=== PATIENT | female | born 1940 | race Caucasian/White ===

== ENCOUNTER 2019-05-20 09:47 | Inpatient (IN) | payer MEDICARE ==
[~2019-05-20] VITALS: Ht 154.9 cm; Wt 75.8 kg
[2019-05-20] VITALS (11 sets, daily range): BP systolic 106–141; BP diastolic 56–96
[2019-05-20 10:54] LABS: BASOPHILS % (AUTO) 0.5 % (0-1); EOSINOPHILS # (AUTO) 0.1 X10'3 (0-0.9); EOSINOPHILS % (AUTO) 0.9 % (0-6); HEMATOCRIT 41.8 % (35.0-45.0); HEMOGLOBIN 14.1 g/dl (12.0-16.0); LYMPHOCYTES # (AUTO) 1.8 X10'3 (1.1-4.8); LYMPHOCYTES % (AUTO) 24.5 % (21-51); MEAN CORPUSCULAR HEMOGLOBIN 30.1 PG (27.0-31.0); MEAN CORPUSCULAR HGB CONC 33.8 g/dL (33.0-36.5); MEAN CORPUSCULAR VOLUME 89.1 FL (78-98); MEAN PLATELET VOLUME 7.6 FL (7.4-10.4); MONOCYTES # (AUTO) 0.6 X10'3 (0-0.9); MONOCYTES % (AUTO) 7.8 % (2-12); NEUTROPHILS % (AUTO) 66.3 % (42-75); PLATELET COUNT 170 X10'3 (140-440); RED BLOOD COUNT 4.68 X10'6 (4.20-5.60); RED CELL DISTRIBUTION WIDTH 14.1 % (11.5-14.5); WHITE BLOOD COUNT 7.5 X10'3 (4.5-11.0)
[2019-05-20 11:01] LABS: PARTIAL THROMBOPLASTIN TIME 29 SECONDS (22-32)
[2019-05-20 11:02] LABS: ALANINE AMINOTRANSFERASE 50 U/L (12-78); ALBUMIN 3.5 G/DL (3.4-5.0); ALKALINE PHOSPHATASE 101 IU/L (46-116); ANION GAP 10 (8-16); ASPARTATE AMINO TRANSFERASE 36 U/L (10-37); BILIRUBIN,TOTAL 1.3 MG/DL (0.1-1.0); BLOOD UREA NITROGEN 13 MG/DL (7-18); BUN/CREATININE RATIO 13.7 (6.6-38.0); CALCIUM 9.2 MG/DL (8.5-10.1); CHLORIDE 105 MMOL/L (99-107); CREATININE 0.95 MG/DL (0.40-0.90); GLUCOSE 116 MG/DL (70-104); POTASSIUM 3.4 MMOL/L (3.5-5.1); SODIUM 143 MMOL/L (135-145); TOTAL CARBON DIOXIDE 28.5 MMOL/L (24-32); TOTAL PROTEIN 7.1 G/DL (6.4-8.2); eGFR 57 ML/MIN
[2019-05-20] MEDS ORDERED: diltiazem 5mg/ml 5ml inj. IV ONE ×3 (12:20→12:45)
[2019-05-20] MEDS ORDERED: aspirin 81mg tab.chew PO ONE (12:20)
[2019-05-20] MEDS ORDERED: diltiazem-D5W 125mg/125ml 125 ML IV PRN (12:42)
[2019-05-20] MEDS ORDERED: normal saline 1000ML IV soln IVB ONE (12:45)
[2019-05-20] MEDS ORDERED: diltiazem-NS 100mg/100ml 100 ML IV PRN (13:00)
[2019-05-20] MEDS ORDERED: normal saline 1000ml 1,000 ML IV SCH (13:17)
[2019-05-20] MEDS ORDERED: ondansetron/PF 4mg/2ml inj IV PRN (13:20)
[2019-05-20] MEDS ORDERED: magnesium hydroxide 30ml (MOM) UD suspension PO PRN (13:20)
[2019-05-20] MEDS ORDERED: acetaminophen 325mg tablet PO PRN ×2 (13:20)
[2019-05-20] MEDS ORDERED: magnesium 2GM in 50ml NS 50 ML IV PRN (13:20)
[2019-05-20] MEDS ORDERED: potassium CL 10mEq/100ml bag 100 ML IV PRN ×2 (13:20)
[2019-05-20] MEDS ORDERED: magnesium Cl slow-release 64mg tablet PO PRN (13:20)
[2019-05-20] MEDS ORDERED: potassium Cl 20 mEq SR tablet PO PRN (13:20)
[2019-05-20] MEDS ORDERED: bisacodyl 10mg suppository rectal RC PRN (13:20)
[2019-05-20] MEDS ORDERED: mag hydrox/Alum hydrox/simeth 30ml oral suspension PO PRN (13:20)
[2019-05-20] MEDS ORDERED: magnesium 4gm in 100ml NS 100 ML IV PRN (13:20)
[2019-05-20] MEDS ORDERED: HYDROcodone/acetaminophen 5mg/325mg tablet PO PRN (13:20)
[2019-05-20] MEDS ORDERED: diltiazem-NS 100mg/100ml 100 ML IV SCH (13:45)
--- NOTE | 2019-05-20 14:00 | NUR ---
Patient in room PCU 3025. I have received report from Kat HELM, ED, and had the opportunity to ask questions and assume patient care.
[2019-05-20 14:41] LABS: PHOSPHORUS 2.4 MG/DL (2.3-4.5)
--- NOTE | 2019-05-20 15:26 | NUR ---
ATTEMPTED TO CALL REPORT TO JOSE HELM: HE WILL CALL ME BACK AFTER HE IS OUT OF A [facility] ROOM PER POKER ROOM MANAGER
--- NOTE | 2019-05-20 15:46 | NUR ---
PHONE REPORT TO JOSE HELM
--- NOTE | 2019-05-20 16:00 | NUR ---
dr long provided medication and history list
--- NOTE | 2019-05-20 16:00 | NUR ---
Patient in room PCU 3025. I have received report from Kat HELM, ED, and had the opportunity to ask questions and assume patient care.
--- NOTE | 2019-05-20 16:07 | NUR ---
per dr jaime leave cardizem gtt at 10mg/hr iv patient to be transferred to PCU on [facility] monitored with rn Eliel JASSO PIV WITH NS @ 20 ML/HR AND CARDIZEM GTT AT 10 MG/HR
--- NOTE | 2019-05-20 16:23 | NUR ---
called [facility] and left message for epifanio alfonso that dr valero wants the cardizem at 10 mg/hr
--- NOTE | 2019-05-20 16:30 | NUR ---
Pt arrived to unit. Oriented Pt to room, call light. Pt hooked up to mobile #[id number]. Pt alert and oriented and vital, except heart rate, WNL
[2019-05-20] MEDS ORDERED: OXYB5TAB16 PO (16:53)
[2019-05-20] MEDS ORDERED: CITA20TA26 PO (16:53)
[2019-05-20] MEDS ORDERED: METO-395 PO (16:53)
[2019-05-20] MEDS ORDERED: RALO60TA13 PO (16:53)
[2019-05-20] MEDS ORDERED: OMEP20TA23 PO (16:57)
[2019-05-20] MEDS ORDERED: OCUVITE PO (17:00)
[2019-05-20] MEDS: potassium Cl 20 mEq SR tablet PO PRN ×2 (17:02→21:11)
[2019-05-20] MEDS ORDERED: NAPR220T67 PO (17:06)
[2019-05-20] MEDS ORDERED: CALCIUM PO (17:08)
[2019-05-20] MEDS ORDERED: [UNRECOGNIZED DRUG - OTHER] PO (17:08)
[2019-05-20] MEDS ORDERED: MV-M1TAB19 PO (17:10)
[2019-05-20] MEDS: diltiazem-NS 100mg/100ml 100 ML IV SCH (17:37)
[2019-05-20] MEDS ORDERED: temazepam 15mg capsule PO PRN (21:00)
[2019-05-21] VITALS (23 sets, daily range): BP systolic 91–143; BP diastolic 52–107
[2019-05-21] MEDS: diltiazem-NS 100mg/100ml 100 ML IV SCH ×3 (01:33→23:10)
[2019-05-21] MEDS: potassium Cl 20 mEq SR tablet PO PRN (01:34)
[2019-05-21] MEDS ORDERED: diltiazem 30mg tablet PO SCH (02:00)
--- NOTE | 2019-05-21 06:16 | NUR ---
Problems reprioritized. Patient report given to Nini HELM., endoresed care, questions answered & plan of care reviewed with . pt resting quietly in bed.
--- NOTE | 2019-05-21 06:30 | NUR ---
Patient in room PCU 3025. I have received report from ALICJA Alcocer and had the opportunity to ask questions and assume patient care.
[2019-05-21] MEDS: K and/or MAG REPLACEMENT MC SCH (08:00)
[2019-05-21] MEDS: raloxifene 60mg tablet PO SCH (08:07)
[2019-05-21] MEDS: citalopram 20mg tablet PO SCH (08:07)
[2019-05-21] MEDS: oxybutynin 5mg tablet PO SCH ×2 (08:07→19:07)
[2019-05-21 08:19] LABS: ANION GAP 10 (8-16); BLOOD UREA NITROGEN 11 MG/DL (7-18); BUN/CREATININE RATIO 11.8 (6.6-38.0); CALCIUM 9.6 MG/DL (8.5-10.1); CHLORIDE 110 MMOL/L (99-107); CHOL/HDL RATIO 2.9 (0.00-4.99); CHOLESTEROL 157 MG/DL (0-200); CREATININE 0.93 MG/DL (0.40-0.90); GLUCOSE 98 MG/DL (70-104); HDL CHOLESTEROL 55 MG/DL (35-60); HEMATOCRIT 41.6 % (35.0-45.0); LDL CHOLESTEROL 101 MG/DL (50-100); MAGNESIUM 1.9 MG/DL (1.5-2.4); MEAN CORPUSCULAR HEMOGLOBIN 30.3 PG (27.0-31.0); MEAN CORPUSCULAR HGB CONC 33.7 g/dL (33.0-36.5); MEAN PLATELET VOLUME 7.8 FL (7.4-10.4); PHOSPHORUS 2.8 MG/DL (2.3-4.5); PLATELET COUNT 169 X10'3 (140-440); POTASSIUM 4.2 MMOL/L (3.5-5.1); RED BLOOD COUNT 4.62 X10'6 (4.20-5.60); RED CELL DISTRIBUTION WIDTH 14.3 % (11.5-14.5); SODIUM 144 MMOL/L (135-145); TOTAL CARBON DIOXIDE 24.5 MMOL/L (24-32); TRIGLYCERIDES 55 MG/DL (20-135); WHITE BLOOD COUNT 9.7 X10'3 (4.5-11.0); eGFR 58 ML/MIN
[2019-05-21] MEDS ORDERED: diltiazem-NS 100mg/100ml 100 ML IV SCH (11:25)
[2019-05-21] MEDS: diltiazem 30mg tablet PO SCH ×4 (12:16→20:00)
--- NOTE | 2019-05-21 14:00 | NUR ---
PER PHARMACY NON ADMIN 1400 PO CARDIZEM TOO EARLY. SUPPOSE TO BE Q6HRS
[2019-05-21] MEDS ORDERED: diltiazem-D5W 125mg/125ml 125 ML IV SCH (15:25)
--- NOTE | 2019-05-21 15:29 | NUR ---
SPOKE TO PHARMACIST ASKED HIM TO ADJUST CARDIZEM PO TO Q6HRS FROM 1ST PO DOSE AT 1200. PER PHARMACIST GIVE NOC DOSE 1HR EARLY THIS DARYL. THEN IT WILL BE ON APPROPRIATE SCHEDULE
--- NOTE | 2019-05-21 15:30 | NUR ---
PT BACK IN AFIB WITH RVR DR. KENDRICK NOTIFIED ORDER FOR CARDIZEM GTT OBTAINED. WILL CONTINUE TO MONITOR PT
--- NOTE | 2019-05-21 18:01 | NUR ---
DR. REGAN AWARE FO FLUCTUATING HEART RATE 110'S-140'S 150'S, PER MD CONTINUE TO MONITOR
--- NOTE | 2019-05-21 18:37 | NUR ---
Problems reprioritized. Patient report given, questions answered & plan of care reviewed with ALICJA SMYTH AND ALICJA LOVELACE.
--- NOTE | 2019-05-21 18:44 | NUR ---
Student documentation: I have reviewed and agree with all interventions, assessments performed and documented by ALICJA MARES. Addendum: 05/21/19 at 1847 by Chary Causey RN SUZAN HUNT RN
--- NOTE | 2019-05-21 18:47 | NUR ---
Student Medication Administration: For this medication-pass time frame, all medication were reviewed, dispensed, administered and documented per hospital policy by SUZAN.
[2019-05-22] VITALS (12 sets, daily range): BP systolic 106–138; BP diastolic 47–89
[2019-05-22] MEDS: diltiazem 30mg tablet PO SCH ×3 (02:12→14:00)
[2019-05-22] MEDS: diltiazem-NS 100mg/100ml 100 ML IV SCH (05:13)
--- NOTE | 2019-05-22 05:30 | NUR ---
ORIENTATIOM documentation: I have reviewed and agree with all interventions, assessments and med passes performed and documented by Ana
[2019-05-22 06:12] LABS: HEMATOCRIT 42.9 % (35.0-45.0); HEMOGLOBIN 14.5 g/dl (12.0-16.0); MEAN CORPUSCULAR HEMOGLOBIN 30.5 PG (27.0-31.0); MEAN CORPUSCULAR HGB CONC 33.8 g/dL (33.0-36.5); MEAN CORPUSCULAR VOLUME 90.2 FL (78-98); PLATELET COUNT 193 X10'3 (140-440); RED BLOOD COUNT 4.75 X10'6 (4.20-5.60); RED CELL DISTRIBUTION WIDTH 14.1 % (11.5-14.5); WHITE BLOOD COUNT 9.3 X10'3 (4.5-11.0)
--- NOTE | 2019-05-22 06:24 | NUR ---
Patient in room PCU 3015. I have received report from Adrian HEML and had the opportunity to ask questions and assume patient care.
[2019-05-22 06:37] LABS: ALBUMIN 3.1 G/DL (3.4-5.0); ANION GAP 12 (8-16); BLOOD UREA NITROGEN 13 MG/DL (7-18); BUN/CREATININE RATIO 15.5 (6.6-38.0); CALCIUM 9.4 MG/DL (8.5-10.1); CHLORIDE 107 MMOL/L (99-107); CREATININE 0.84 MG/DL (0.40-0.90); GLUCOSE 118 MG/DL (70-104); MAGNESIUM 1.8 MG/DL (1.5-2.4); PHOSPHORUS 2.4 MG/DL (2.3-4.5); POTASSIUM 3.6 MMOL/L (3.5-5.1); SODIUM 142 MMOL/L (135-145); TOTAL CARBON DIOXIDE 23.4 MMOL/L (24-32); eGFR 66 ML/MIN
[2019-05-22] MEDS: oxybutynin 5mg tablet PO SCH (07:16)
[2019-05-22] MEDS: citalopram 20mg tablet PO SCH (07:16)
[2019-05-22] MEDS: raloxifene 60mg tablet PO SCH (07:17)
[2019-05-22] MEDS: K and/or MAG REPLACEMENT MC SCH (07:19)
--- NOTE | 2019-05-22 10:05 | NUR ---
Page Dr. Spivey PAGER ID: [phone] MESSAGE: Room 3015B: Caitlyn Hines: Patient is currently on 10mg Cardizem drip & 90 mg Cardizem PO. Her heart rate is high 60's low 70's. Could we drop her drip rate down to 5mg? Thank you, Elinor ext [phone].
[2019-05-22] MEDS ORDERED: diltiazem-NS 100mg/100ml 100 ML IV SCH ×2 (10:55→12:30)
--- NOTE | 2019-05-22 14:46 | NUR ---
Page Dr. Spivey PAGER ID: [phone] MESSAGE: Room 3015B Caitlyn Hines: Patient's rhythm converted to sinus about 1330. The Cardizem drip is off. Would you like to still continue the PO Cardizem? Thank you, Elinor ext [phone].
[2019-05-22] MEDS ORDERED: DILT30TA5 PO (15:31)
[2019-05-22] MEDS ORDERED: ATOR20TA66 PO (15:31)
[2019-05-22] MEDS ORDERED: APIX5TAB3 PO (15:31)
--- NOTE | 2019-05-22 15:52 | NUR ---
Called in the following prescriptions to patients preferred pharmacy, [facility] Eliquis 5mg Tablet PO BID #60 Tablets Atorvastatin Calcium 20mg Tablet PO Daily #30 Tablets Diltiazem HCl 30mg Tablet 90mg PO q6h #120 Tablets Patient also given a 30 day Eliquis coupon. Will inform patient and primary nurse of prescriptions sent to pharmacy.
--- NOTE | 2019-05-22 16:38 | NUR ---
Page Dr. Spivey PAGER ID: [phone] MESSAGE: Room 3015B Caitlyn Hines: Clarification needed on Diltiazem medication for discharge. Thank you, Elinor ext [phone].
[2019-05-22] MEDS ORDERED: DILT90TA2 PO (17:05)
--- NOTE | 2019-05-22 17:15 | NUR ---
Patient stable for discharge per MD orders. All discharge instructions reviewed with patient and all questions answered. New prescriptions called into patient's preferred pharmacy. PIV and bedside monitor discontinued. Belongings collected and sent with patient. Patient left in private vehicle with and father. Patient wheeled to lobby by PCT aide.
--- NOTE | 2019-05-22 17:25 | NUR ---
Orientee documentation: I have reviewed and agree with all interventions, assessments performed and documented by Elinor HELM. Orientee Medication Administration: For this medication-pass time frame, all medication were reviewed, dispensed, administered and documented per hospital policy by Elinor HELM.
== END 2019-05-22 16:58 | disposition home health service (06) | DRG 309 ==
LOC: ER 09:48 → ED HOLD 13:17 → PCU 3S 16:30
PROVIDERS: ADMIT Family Medicine; ATTEND Family Medicine
DX: I48.91 Unspecified atrial fibrillation (principal); I20.0 Unstable angina; E87.6 Hypokalemia; M81.0 Age-related osteoporosis without current pathological fracture; F41.1 Generalized anxiety disorder; K21.9 Gastro-esophageal reflux disease without esophagitis; N18.9 Chronic kidney disease, unspecified; I12.9 Hypertensive chronic kidney disease with stage 1 through stage 4 chronic kidney disease, or unspecified chronic kidney disease; H35.30 Unspecified macular degeneration; Z88.0 Allergy status to penicillin; Z88.2 Allergy status to sulfonamides; Z88.6 Allergy status to analgesic agent; Z88.8 Allergy status to other drugs, medicaments and biological substances; Z90.49 Acquired absence of other specified parts of digestive tract; Z90.710 Acquired absence of both cervix and uterus; Z85.3 Personal history of malignant neoplasm of breast; Z87.19 Personal history of other diseases of the digestive system; Z92.21 Personal history of antineoplastic chemotherapy; Z92.3 Personal history of irradiation
CPT/HCPCS: 36415; 71045; 80048; 80053; 80061; 83735; 84100; 84443; 84484; 85025; 85027; 85610; 85730; 87081; 93005; 93306; 96374; 96376; 99291; G0378; J3490; J7030

== ENCOUNTER 2020-08-26 15:44 | Emergency (ER) | payer MEDICARE ==
[~2020-08-26] VITALS: Ht 154.9 cm; Wt 83.2 kg
[~2020-08-26 15:44] MED LIST: APIX5TAB3 PO; ATOR20TA66 PO; CALCIUM PO; CITA20TA26 PO; DILT90TA2 PO; MV-M1TAB19 PO; OCUVITE PO; OMEP20TA23 PO; OXYB5TAB16 PO; RALO60TA13 PO; [UNRECOGNIZED DRUG - OTHER] PO
[2020-08-26] MEDS ORDERED: BAMLANIVIMAB INJECTION 700 MG in normal saline 250ml IV soln 180 ML IV ONE (17:30)
[2020-08-26 17:45] LABS: BASOPHILS % (AUTO) 0.3 % (0-1); EOSINOPHILS % (AUTO) 0.2 % (0-6); HEMATOCRIT 40.2 % (35.0-45.0); HEMOGLOBIN 13.3 g/dl (12.0-16.0); LYMPHOCYTES # (AUTO) 1.1 X10'3 (1.1-4.8); LYMPHOCYTES % (AUTO) 23.8 % (21-51); MEAN CORPUSCULAR HEMOGLOBIN 28.7 PG (27.0-31.0); MEAN CORPUSCULAR HGB CONC 33.1 g/dL (33.0-36.5); MEAN CORPUSCULAR VOLUME 86.8 FL (78-98); MEAN PLATELET VOLUME 8.1 FL (7.4-10.4); MONOCYTES # (AUTO) 0.6 X10'3 (0-0.9); MONOCYTES % (AUTO) 14.2 % (2-12); NEUTROPHILS # (AUTO) 2.8 X10'3 (1.8-7.7); NEUTROPHILS % (AUTO) 61.5 % (42-75); PLATELET COUNT 132 X10'3 (140-440); RED BLOOD COUNT 4.64 X10'6 (4.20-5.60); RED CELL DISTRIBUTION WIDTH 14.8 % (11.5-14.5); WHITE BLOOD COUNT 4.5 X10'3 (4.5-11.0)
[2020-08-26] MEDS ORDERED: BAMLANIVIMAB INJECTION 700 MG in normal saline 250ml IV soln 250 ML IV ONE (18:28)
[2020-08-26 18:34] LABS: ALANINE AMINOTRANSFERASE 35 U/L (12-78); ALBUMIN 3.4 G/DL (3.4-5.0); ALBUMIN/GLOBULIN RATIO 0.9 (1.1-1.5); ALKALINE PHOSPHATASE 88 IU/L (46-116); ANION GAP 8 (8-16); ASPARTATE AMINO TRANSFERASE 41 U/L (10-37); BILIRUBIN,TOTAL 1.1 MG/DL (0.1-1.0); BLOOD UREA NITROGEN 19 MG/DL (7-18); BUN/CREATININE RATIO 16.8 (6.6-38.0); CALCIUM 9.4 MG/DL (8.5-10.1); CHLORIDE 102 MMOL/L (99-107); CREATININE 1.13 MG/DL (0.40-0.90); GLUCOSE 109 MG/DL (70-104); POTASSIUM 3.8 MMOL/L (3.5-5.1); SODIUM 138 MMOL/L (135-145); TOTAL CARBON DIOXIDE 28.5 MMOL/L (24-32); TOTAL PROTEIN 7.4 G/DL (6.4-8.2); eGFR 46 ML/MIN
[2020-08-26 21:38] VITALS: BP 156/65
== END 2020-08-26 21:40 | disposition home or self-care (01) ==
LOC: ER 15:45
DX: U07.1 COVID-19 (principal); R05 Cough; R19.7 Diarrhea, unspecified; R53.83 Other fatigue; I10 Essential (primary) hypertension; Z90.49 Acquired absence of other specified parts of digestive tract; Z90.710 Acquired absence of both cervix and uterus; Z98.890 Other specified postprocedural states; Z88.0 Allergy status to penicillin; Z88.2 Allergy status to sulfonamides; Z88.5 Allergy status to narcotic agent; Z88.8 Allergy status to other drugs, medicaments and biological substances; Z79.899 Other long term (current) drug therapy
CPT/HCPCS: 36415; 71045; 80053; 84145; 85025; 87635; 96365; 99285; C9803; J7050

== ENCOUNTER 2020-08-27 16:40 | Emergency (ER) | payer MEDICARE ==
[~2020-08-27] VITALS: Ht 154.9 cm; Wt 84.1 kg
[2020-08-27] MEDS ORDERED: acetaminophen 325mg tablet PO ONE (18:05)
--- NOTE | 2020-08-27 18:42 | NUR ---
CALL SON WHEN PT IS READY TO GET DISCHARGED
[2020-08-27 19:11] VITALS: BP 133/87
== END 2020-08-27 19:12 | disposition home or self-care (01) ==
LOC: ER 16:41
DX: U07.1 COVID-19 (principal); I10 Essential (primary) hypertension; Z90.49 Acquired absence of other specified parts of digestive tract; Z90.710 Acquired absence of both cervix and uterus; Z98.890 Other specified postprocedural states; Z88.0 Allergy status to penicillin; Z88.2 Allergy status to sulfonamides; Z88.5 Allergy status to narcotic agent; Z88.8 Allergy status to other drugs, medicaments and biological substances; Z79.01 Long term (current) use of anticoagulants; Z79.899 Other long term (current) drug therapy
CPT/HCPCS: 99283

== ENCOUNTER 2020-10-14 14:59 | Emergency (ER) | payer MEDICARE ==
[~2020-10-14] VITALS: Ht 154.9 cm; Wt 83.2 kg
[2020-10-14] MEDS ORDERED: acetaminophen 325mg tablet PO ONE (16:10)
--- NOTE | 2020-10-14 18:18 | NUR ---
SON LORA BAIG CALLED [phone] TO PICK HER UP
[2020-10-14 18:21] VITALS: BP 155/87
[2020-10-14] MEDS ORDERED: HYDR-3964 PO (18:21)
[2020-10-14] MEDS ORDERED: ONDA4TAB6 PO (18:21)
== END 2020-10-14 18:45 | disposition home or self-care (01) ==
LOC: ER 15:00
DX: S62.327A Displaced fracture of shaft of fifth metacarpal bone, left hand, initial encounter for closed fracture (principal); S00.83XA Contusion of other part of head, initial encounter; S06.0X0A Concussion without loss of consciousness, initial encounter; M79.642 Pain in left hand; I48.91 Unspecified atrial fibrillation; I10 Essential (primary) hypertension; Z90.49 Acquired absence of other specified parts of digestive tract; Z90.710 Acquired absence of both cervix and uterus; Z98.890 Other specified postprocedural states; Z88.0 Allergy status to penicillin; Z88.2 Allergy status to sulfonamides; Z88.5 Allergy status to narcotic agent; Z88.8 Allergy status to other drugs, medicaments and biological substances; Z79.899 Other long term (current) drug therapy; W18.39XA Other fall on same level, initial encounter; Y93.89 Activity, other specified; Y92.89 Other specified places as the place of occurrence of the external cause; Y99.8 Other external cause status
CPT/HCPCS: 29125; 70450; 70486; 73130; 99285

== ENCOUNTER 2021-06-11 23:10 | Inpatient (IN) | payer MEDICARE ==
[~2021-06-11] VITALS: Ht 154.9 cm; Wt 80.9 kg
[~2021-06-11 23:10] MED LIST changes: -CALCIUM PO; -CITA20TA26 PO; +CITA20TA28 PO; -DILT90TA2 PO; +FLEC50TA PO; +FURO20TA4 PO; +LORA10TA7 PO; -MV-M1TAB19 PO; -OCUVITE PO; +OMEP-50 PO; -OMEP20TA23 PO; -OXYB5TAB16 PO; +POTA-188 PO; +PROP10TA10 PO; -RALO60TA13 PO; +SOLI10TA7 PO; -[UNRECOGNIZED DRUG - OTHER] PO
[2021-06-11] MEDS ORDERED: normal saline 1000ML IV soln IV ONE (23:25)
[2021-06-12 00:03] LABS: ALANINE AMINOTRANSFERASE 11 U/L (12-78); ALBUMIN 2.7 G/DL (3.4-5.0); ALBUMIN/GLOBULIN RATIO 0.6 (1.1-1.5); ALKALINE PHOSPHATASE 67 IU/L (46-116); ANION GAP 8 (8-16); ASPARTATE AMINO TRANSFERASE 16 U/L (10-37); BILIRUBIN,TOTAL 0.7 MG/DL (0.1-1.0); BLOOD UREA NITROGEN 18 MG/DL (7-18); BUN/CREATININE RATIO 19.6 (6.6-38.0); CALCIUM 10.4 MG/DL (8.5-10.1); CHLORIDE 104 MMOL/L (99-107); CREATININE 0.92 MG/DL (0.40-0.90); GLUCOSE 90 MG/DL (70-104); POTASSIUM 3.2 MMOL/L (3.5-5.1); SODIUM 141 MMOL/L (135-145); TOTAL CARBON DIOXIDE 29.2 MMOL/L (24-32); TOTAL PROTEIN 7.2 G/DL (6.4-8.2); eGFR 59 ML/MIN
[2021-06-12] MEDS ORDERED: magnesium oxide 400mg tablet PO ONE (00:20)
[2021-06-12] MEDS ORDERED: potassium Cl 20 mEq SR tablet PO ONE (00:20)
[2021-06-12 00:37] LABS: MAGNESIUM 2.2 MG/DL (1.5-2.4)
[2021-06-12 00:43] LABS: CLARITY,URINE SLIGHTLY CLOUDY (Clear); COLOR,URINE YELLOW (Yellow); UA COLLECTION TYPE STRAIGHT CATH
[2021-06-12 00:44] LABS: GLUCOSE, URINE NEGATIVE (Neg); KETONES,URINE TRACE mg/dl (Neg); LEUKOCYTE ESTERASE ,URINE NEGATIVE (Neg); NITRITES, URINE NEGATIVE (Neg); OCCULT BLOOD,URINE NEGATIVE (Neg); PH,URINE 7.5 (4.8-8.0); PROTEIN,URINE NEGATIVE (Neg); UROBILINOGEN,URINE 0.2 E.U/dL (0.2-1.0)
[2021-06-12 00:50] LABS: BACTERIA,URINE FEW /HPF (Neg); RBC,URINE 0-2 /HPF (0-2); WBC,URINE 0-4 /HPF (0-4)
[2021-06-12 00:51] LABS: AMORPHOUS PHOSPHATES 3+; MUCUS STRANDS FEW /LPF (Neg); SQUAMOUS EPITHELIAL CELL,UR MANY /LPF (FEW)
[2021-06-12 01:15] LABS: BASOPHILS # (AUTO) 0.1 X10'3 (0-0.2); BASOPHILS % (AUTO) 0.6 % (0-1); EOSINOPHILS # (AUTO) 0.1 X10'3 (0-0.9); EOSINOPHILS % (AUTO) 0.7 % (0-6); HEMATOCRIT 33.8 % (35.0-45.0); HEMOGLOBIN 11.4 g/dl (12.0-16.0); LYMPHOCYTES # (AUTO) 1.6 X10'3 (1.1-4.8); LYMPHOCYTES % (AUTO) 13.4 % (21-51); MEAN CORPUSCULAR HEMOGLOBIN 29.9 PG (27.0-31.0); MEAN CORPUSCULAR HGB CONC 33.9 g/dL (33.0-36.5); MEAN CORPUSCULAR VOLUME 88.2 FL (78-98); MONOCYTES # (AUTO) 1.2 X10'3 (0-0.9); MONOCYTES % (AUTO) 10.8 % (2-12); NEUTROPHILS # (AUTO) 8.6 X10'3 (1.8-7.7); NEUTROPHILS % (AUTO) 74.5 % (42-75); PLATELET COUNT 359 X10'3 (140-440); RED BLOOD COUNT 3.83 X10'6 (4.20-5.60); RED CELL DISTRIBUTION WIDTH 14.7 % (11.5-14.5); WHITE BLOOD COUNT 11.6 X10'3 (4.5-11.0)
[2021-06-12] MEDS ORDERED: benztropine 1mg tablet PO ONE (01:20)
[2021-06-12] MEDS ORDERED: HYDROcodone/acetaminophen 5mg/325mg tablet PO ONE (01:20)
[2021-06-12] MEDS ORDERED: labetalol 20mg/4ml (5mg/ml) syringe IV ONE (02:05)
[2021-06-12] MEDS ORDERED: diltiazem 5mg/ml 5ml inj. IV ONE (02:05)
[2021-06-12] MEDS ORDERED: digoxin 250mcg/ml 2ml ampule IV ONE (02:05)
[2021-06-12] MEDS ORDERED: iohexol 300mg/ml 100ml inj. ONE (02:48)
[2021-06-12] MEDS ORDERED: ondansetron 4mg rapidly disintigrating tab PO PRN (03:00)
[2021-06-12] MEDS ORDERED: morphine 2 MG/ML inj. syringe IV PRN ×2 (03:00)
[2021-06-12] MEDS ORDERED: potassium Cl 40MEQ/1/2NS 520ml 520 ML IV PRN (03:00)
[2021-06-12] MEDS ORDERED: acetaminophen 325mg tablet PO PRN (03:00)
[2021-06-12] MEDS ORDERED: diphenhydrAMINE 25mg capsule PO PRN ×2 (03:00→12:50)
[2021-06-12] MEDS ORDERED: bisacodyl 10mg suppository rectal RC PRN (03:00)
[2021-06-12] MEDS ORDERED: acetaminophen 650mg rectal suppository RC PRN (03:00)
[2021-06-12] MEDS ORDERED: HYDROcodone/acetaminophen 10/325mg tab PO PRN (03:00)
[2021-06-12] MEDS ORDERED: mag hydrox/Alum hydrox/simeth 30ml oral suspension PO PRN (03:00)
[2021-06-12] MEDS ORDERED: potassium Cl 20 mEq SR tablet PO PRN ×2 (03:00)
[2021-06-12] MEDS ORDERED: magnesium hydroxide 30ml (MOM) UD suspension PO PRN ×2 (03:00→12:50)
[2021-06-12] MEDS ORDERED: diphenhydrAMINE 50 mg/ml inj IV PRN (03:00)
[2021-06-12] MEDS ORDERED: magnesium Cl slow-release 64mg tablet PO PRN (03:00)
[2021-06-12] MEDS ORDERED: HYDROcodone/acetaminophen 5mg/325mg tablet PO PRN ×3 (03:00→12:50)
[2021-06-12] MEDS ORDERED: LORazepam 2 mg/ml vial IV ONE (03:00)
[2021-06-12] MEDS ORDERED: ondansetron/PF 4mg/2ml inj IV PRN (03:00)
[2021-06-12] MEDS ORDERED: magnesium 4gm in 100ml NS 100 ML IV PRN (03:00)
--- NOTE | 2021-06-12 03:00 | NUR ---
Patients groin and armpit area found to filled with rashes. Area cleaned and new pads placed. Abdominal incision checked and found to be clean, dry and no signs of redness/drainage noted. New dressing applied.
--- NOTE | 2021-06-12 03:03 | NUR ---
Patient initially came into ED alert and oriented. As IV was placed earlier this shift, patient began becoming extremely restless and agitated. Patient began bizzarely waving hands and moaning loudly. Patient was unable to communicate needs when asked. Patient''s heart rate began elevating and intermittently reaching into the 140's. Patient then communicated she was in pain. PO [place] was given, patient presented as disorganized and required much coaching to be able to take pill PO. Patient kept opening and closing hands bizarrely. Patient eventually took PO medication and continued to present as disorganized.
[2021-06-12] MEDS ORDERED: LORazepam 2 mg/ml vial IV PRN (03:10)
[2021-06-12] MEDS ORDERED: FLEC100T35 PO (03:19)
[2021-06-12] MEDS ORDERED: MAGN400O6 PO (03:19)
[2021-06-12] MEDS ORDERED: DIGO125T PO (03:19)
[2021-06-12] MEDS ORDERED: MYCOL30CR TP (03:19)
[2021-06-12] MEDS ORDERED: FURO-150 PO (03:19)
[2021-06-12] MEDS ORDERED: LACT1CAP86 PO (03:19)
[2021-06-12] MEDS ORDERED: BISA10SU60 RC (03:19)
[2021-06-12] MEDS ORDERED: RIVA20TA PO (03:19)
[2021-06-12] MEDS ORDERED: METR-159 PO (03:19)
[2021-06-12] MEDS ORDERED: OXYB5TAB16 PO (03:19)
[2021-06-12] MEDS ORDERED: DILT60TA9 PO (03:19)
[2021-06-12] MEDS ORDERED: CIPR-202 PO (03:19)
[2021-06-12] MEDS ORDERED: SENN-263 PO (03:19)
[2021-06-12 03:37] LABS: CREATINE KINASE 38 U/L (26-192); LIPASE 205 U/L (73-393); PHOSPHORUS 2.6 MG/DL (2.3-4.5); TROPONIN I < 0.04 NG/ML (0.0-0.05)
[2021-06-12] MEDS: normal saline 1000ml 1,000 ML IV SCH ×3 (04:55→23:40)
[2021-06-12 05:26] LABS: D-DIMER 2.16 MG/L FEU (0-0.50); PARTIAL THROMBOPLASTIN TIME 23 SECONDS (22-32)
[2021-06-12] MEDS: aspirin 81mg, enteric-coated 1 TAB TABLET.DR PO SCH (08:00)
[2021-06-12] MEDS: K and/or MAG REPLACEMENT MC SCH ×2 (08:00→20:00)
[2021-06-12] MEDS ORDERED: heparin, porcine 5000 units/ml vial SQ SCH (08:00)
[2021-06-12] MEDS: docusate sod 100mg capsule PO SCH ×2 (08:00→20:30)
--- NOTE | 2021-06-12 09:23 | NUR ---
Pharmacy called re; [facility] infusion
[2021-06-12] MEDS ORDERED: HYDR-3964 PO (12:20)
[2021-06-12] MEDS ORDERED: DIPH25CA83 PO (12:20)
[2021-06-12] MEDS ORDERED: NYST30CR2 TP (12:20)
--- NOTE | 2021-06-12 13:38 | NUR ---
Attempted to call reort to Betzaida HELM, spoke with Ravindra. Will call back
--- NOTE | 2021-06-12 14:15 | NUR ---
Report called to Betzaida HELM ext [phone]
[2021-06-12 14:48] VITALS: BP 147/77
--- NOTE | 2021-06-12 15:14 | NUR ---
Patient in room PCU 3012. I have received report from ALICJA HINES, and had the opportunity to ask questions and assume patient care.
[2021-06-12] MEDS: diltiazem 30mg tablet PO SCH ×2 (16:35→20:29)
[2021-06-12] MEDS: metroNIDAZOLE 500mg tablet PO SCH ×2 (16:35→20:30)
--- NOTE | 2021-06-12 16:51 | NUR ---
PAGE SENT. PAGER ID: [phone] MESSAGE: [id number], KELSEY BAIG, LAB RESULTS - GRAM + COCCI IN CLUSTERS FROM HER AEROBIC IV. PT IS CURRENTLY ON FLAGYL AND CIPROFOXACIN. THANK YOU, HAI Bennett [phone]
[2021-06-12] MEDS ORDERED: rivaroxaban 20mg tablet PO SCH (18:00)
--- NOTE | 2021-06-12 18:42 | NUR ---
Problems reprioritized. Patient report given, questions answered & plan of care reviewed with ALICJA FATIMA.
[2021-06-12 19:00] VITALS: BP 161/64
[2021-06-12] MEDS: ciprofloxacin 250mg tablet PO SCH (20:29)
[2021-06-12] MEDS: propranolol 10mg tablet PO SCH (20:30)
[2021-06-12] MEDS: lactobacillus rhamnosus 10,000 MMU CELLS/CAPSULE PO SCH (20:30)
[2021-06-12] MEDS ORDERED: atorvastatin 20mg tablet PO SCH (21:00)
[2021-06-12] MEDS ORDERED: temazepam 15mg capsule PO PRN (21:00)
[2021-06-12] MEDS ORDERED: oxybutynin 5mg tablet PO SCH (21:00)
[2021-06-12 22:00] VITALS: BP 123/73
[2021-06-13 02:00] VITALS: BP 117/56
[2021-06-13] MEDS: diltiazem 30mg tablet PO SCH ×2 (02:35→09:01)
[2021-06-13 06:00] VITALS: BP 121/46
[2021-06-13 06:28] LABS: BASOPHILS % (AUTO) 0.7 % (0-1); EOSINOPHILS # (AUTO) 0.1 X10'3 (0-0.9); EOSINOPHILS % (AUTO) 1.2 % (0-6); HEMOGLOBIN 10.2 g/dl (12.0-16.0); LYMPHOCYTES % (AUTO) 18.7 % (21-51); MEAN CORPUSCULAR HEMOGLOBIN 30.3 PG (27.0-31.0); MEAN CORPUSCULAR HGB CONC 33.9 g/dL (33.0-36.5); MEAN CORPUSCULAR VOLUME 89.4 FL (78-98); MEAN PLATELET VOLUME 7.6 FL (7.4-10.4); MONOCYTES # (AUTO) 0.6 X10'3 (0-0.9); MONOCYTES % (AUTO) 10.8 % (2-12); NEUTROPHILS # (AUTO) 3.8 X10'3 (1.8-7.7); NEUTROPHILS % (AUTO) 68.6 % (42-75); PLATELET COUNT 310 X10'3 (140-440); RED BLOOD COUNT 3.35 X10'6 (4.20-5.60); RED CELL DISTRIBUTION WIDTH 14.7 % (11.5-14.5); WHITE BLOOD COUNT 5.5 X10'3 (4.5-11.0)
[2021-06-13 06:39] LABS: ALANINE AMINOTRANSFERASE 12 U/L (12-78); ALBUMIN 2.2 G/DL (3.4-5.0); ALBUMIN/GLOBULIN RATIO 0.6 (1.1-1.5); ALKALINE PHOSPHATASE 58 IU/L (46-116); ANION GAP 5 (8-16); ASPARTATE AMINO TRANSFERASE 17 U/L (10-37); BILIRUBIN,TOTAL 0.3 MG/DL (0.1-1.0); BLOOD UREA NITROGEN 15 MG/DL (7-18); BUN/CREATININE RATIO 18.3 (6.6-38.0); CALCIUM 9.6 MG/DL (8.5-10.1); CHLORIDE 111 MMOL/L (99-107); CHOL/HDL RATIO 3.4 (0.00-4.99); CHOLESTEROL 96 MG/DL (0-200); CREATININE 0.82 MG/DL (0.40-0.90); GLUCOSE 92 MG/DL (70-104); HDL CHOLESTEROL 28 MG/DL (35-60); LDL CHOLESTEROL 67 MG/DL (50-100); POTASSIUM 3.6 MMOL/L (3.5-5.1); SODIUM 143 MMOL/L (135-145); TOTAL CARBON DIOXIDE 26.9 MMOL/L (24-32); TOTAL PROTEIN 5.7 G/DL (6.4-8.2); TRIGLYCERIDES 79 MG/DL (20-135); eGFR 67 ML/MIN
[2021-06-13] MEDS ORDERED: pantoprazole 40mg Tablet.DR PO SCH (07:30)
[2021-06-13] MEDS: K and/or MAG REPLACEMENT MC SCH (08:00)
[2021-06-13] MEDS ORDERED: digoxin 125mcg (0.125mg) tablet PO SCH (08:00)
[2021-06-13] MEDS ORDERED: potassium chloride 10mEq ER tablet PO SCH (08:00)
[2021-06-13] MEDS ORDERED: bisacodyl 10mg suppository rectal RC SCH (08:00)
[2021-06-13] MEDS ORDERED: furosemide 20MG tablet PO SCH (08:00)
[2021-06-13] MEDS ORDERED: citalopram 20mg tablet PO SCH (08:00)
[2021-06-13] MEDS: propranolol 10mg tablet PO SCH (08:00)
[2021-06-13] MEDS ORDERED: flecainide 50mg tablet PO SCH (08:00)
[2021-06-13] MEDS ORDERED: sennosides 8.6mg tablet PO SCH (08:00)
[2021-06-13] MEDS ORDERED: loratadine 10mg tablet PO SCH (08:00)
[2021-06-13] MEDS: metroNIDAZOLE 500mg tablet PO SCH (08:59)
[2021-06-13] MEDS: ciprofloxacin 250mg tablet PO SCH (09:00)
[2021-06-13] MEDS: lactobacillus rhamnosus 10,000 MMU CELLS/CAPSULE PO SCH (09:00)
[2021-06-13] MEDS: docusate sod 100mg capsule PO SCH (09:00)
[2021-06-13] MEDS: aspirin 81mg, enteric-coated 1 TAB TABLET.DR PO SCH (09:00)
--- NOTE | 2021-06-13 10:50 | NUR ---
REPORT GIVEN TO MADELYN HELM AT [facility].
--- NOTE | 2021-06-13 11:20 | NUR ---
PT TRANSFERRED TO [facility] AT 1120. ALL PT BELONGINGS GATHERED AND SENT WITH PT. PIV DISCONTINUED, CANNULA INTACT. HOUSEKEEPING DEPARTMENT WORKER DISCONTINUED.
== END 2021-06-13 11:48 | DRG 71 ==
LOC: ER 23:11 → ED HOLD 06-12 03:06 → UNDOADMIN 06-12 03:06 → PCU 3S 06-12 14:30 → ED HOLD 06-12 14:30
PROVIDERS: ADMIT Family Medicine; ATTEND Family Medicine
PROC: BW211ZZ Computerized Tomography (CT Scan) of Abdomen and Pelvis using Low Osmolar Contrast (ICD-10-PCS; principal; 2021-06-12)
DX: G93.41 Metabolic encephalopathy (principal); N17.9 Acute kidney failure, unspecified; E86.0 Dehydration; R82.4 Acetonuria; F03.90 Unspecified dementia, unspecified severity, without behavioral disturbance, psychotic disturbance, mood disturbance, and anxiety; I48.91 Unspecified atrial fibrillation; E78.5 Hyperlipidemia, unspecified; N18.9 Chronic kidney disease, unspecified; E87.6 Hypokalemia; I12.9 Hypertensive chronic kidney disease with stage 1 through stage 4 chronic kidney disease, or unspecified chronic kidney disease; Z87.440 Personal history of urinary (tract) infections; Z90.49 Acquired absence of other specified parts of digestive tract; Z90.710 Acquired absence of both cervix and uterus; Z79.01 Long term (current) use of anticoagulants; Z88.0 Allergy status to penicillin; Z88.8 Allergy status to other drugs, medicaments and biological substances; Z88.5 Allergy status to narcotic agent; Z88.2 Allergy status to sulfonamides; Z91.048 Other nonmedicinal substance allergy status; Z79.899 Other long term (current) drug therapy
CPT/HCPCS: 36415; 70450; 71045; 74177; 80053; 80061; 80162; 81001; 82550; 83605; 83690; 83735; 83880; 84100; 84132; 84145; 84484; 85025; 85379; 85610; 85730; 87040; 87077; 87186; 93005; 96374; 96375; 99285; G0378; J1160; J1644; J2060; J3480; J3490; J7030; Q9967

== ENCOUNTER 2022-01-28 10:39 | Day surgery (SDC) | payer MEDICARE ==
[2022-01-27 13:13] LABS: BASOPHILS % (AUTO) 0.9 % (0-1); EOSINOPHILS % (AUTO) 0.6 % (0-6); HEMATOCRIT 34.7 % (35.0-45.0); HEMOGLOBIN 11.2 g/dl (12.0-16.0); LYMPHOCYTES # (AUTO) 1.7 X10'3 (1.1-4.8); LYMPHOCYTES % (AUTO) 29.6 % (21-51); MEAN CORPUSCULAR HEMOGLOBIN 25.8 PG (27.0-31.0); MEAN CORPUSCULAR HGB CONC 32.3 g/dL (33.0-36.5); MEAN CORPUSCULAR VOLUME 79.7 FL (78-98); MEAN PLATELET VOLUME 7.1 FL (7.4-10.4); MONOCYTES # (AUTO) 0.4 X10'3 (0-0.9); MONOCYTES % (AUTO) 7.1 % (2-12); NEUTROPHILS # (AUTO) 3.5 X10'3 (1.8-7.7); NEUTROPHILS % (AUTO) 61.8 % (42-75); PLATELET COUNT 220 X10'3 (140-440); RED BLOOD COUNT 4.35 X10'6 (4.20-5.60); RED CELL DISTRIBUTION WIDTH 16.8 % (11.5-14.5); WHITE BLOOD COUNT 5.7 X10'3 (4.5-11.0)
[2022-01-27 13:27] LABS: APTT 28 SECONDS (22-32)
[2022-01-27 13:31] LABS: ALBUMIN 3.6 G/DL (3.4-5.0); ANION GAP 5 (8-16); BLOOD UREA NITROGEN 18 MG/DL (7-18); BUN/CREATININE RATIO 17.5 (6.6-38.0); CALCIUM 9.7 MG/DL (8.5-10.1); CHLORIDE 106 MMOL/L (99-107); CREATININE 1.03 MG/DL (0.40-0.90); GLUCOSE 91 MG/DL (70-104); POTASSIUM 4.2 MMOL/L (3.5-5.1); SODIUM 141 MMOL/L (135-145); TOTAL CARBON DIOXIDE 29.9 MMOL/L (24-32); eGFR 52 ML/MIN
[~2022-01-28] VITALS: Ht 154.9 cm; Wt 85.0 kg
[2022-01-28] VITALS (11 sets, daily range): BP systolic 120–155; BP diastolic 58–100
[~2022-01-28 10:39] MED LIST changes: -APIX5TAB3 PO; +BISA10SU60 RC; +CIPR-202 PO; +DIGO125T PO; +DILT60TA9 PO; +DIPH25CA83 PO; +FLEC100T35 PO; -FLEC50TA PO; +FURO-150 PO; -FURO20TA4 PO; +HYDR-3964 PO; +LACT1CAP86 PO; +MAGN400O6 PO; +METR-159 PO; +NYST30CR2 TP; -OMEP-50 PO; +OMEP20CA16 PO; +OXYB5TAB16 PO; +RIVA20TA PO; +SENN-263 PO; -SOLI10TA7 PO
[2022-01-28] MEDS ORDERED: CALC300T4 PO (11:11)
[2022-01-28] MEDS ORDERED: CHOL200012 PO (11:11)
[2022-01-28] MEDS ORDERED: BETA1TAB18 PO (11:11)
[2022-01-28] MEDS ORDERED: APIX5TAB3 PO (11:11)
[2022-01-28] MEDS ORDERED: fentaNYL/PF 50MCG/1 ML 2ML syringe ONE (14:26)
[2022-01-28] MEDS ORDERED: iohexol 350MG/ML 100ml bottle IV ONE (14:26)
[2022-01-28] MEDS ORDERED: midazolam 1 mg/ML 2ml injection ONE (14:26)
[2022-01-28] MEDS ORDERED: LIDOcaine 1% 30ml preserv. free vial ONE (14:26)
[2022-01-28] MEDS ORDERED: heparin 1,000unit/ml 10ml vial 10 ML ONE (14:26)
[2022-01-28] MEDS ORDERED: nitroGLYCERIN-Tridil 50MG/D5W 250 ML IV ONE (14:26)
[2022-01-28] MEDS ORDERED: verapamil 2.5 mg/ml inj IV ONE (14:26)
[2022-01-28] MEDS ORDERED: iohexol 350 MG/ML 50ML vial IV ONE (15:34)
[2022-01-28] MEDS ORDERED: hydrALAZINE 20mg/ml inj. IV ONE (15:38)
[2022-01-28] MEDS ORDERED: normal saline 1000ml 1,000 ML IV SCH (16:15)
== END 2022-01-28 20:15 | disposition home or self-care (01) ==
LOC: SSTAY O 10:39
PROVIDERS: ATTEND Internal Medicine Cardiovascular Disease
DX: R94.39 Abnormal result of other cardiovascular function study (principal); E78.5 Hyperlipidemia, unspecified; I48.0 Paroxysmal atrial fibrillation; I11.0 Hypertensive heart disease with heart failure; I50.30 Unspecified diastolic (congestive) heart failure; E66.3 Overweight; Z68.34 Body mass index [BMI] 34.0-34.9, adult; Z98.890 Other specified postprocedural states; Z79.01 Long term (current) use of anticoagulants; Z79.899 Other long term (current) drug therapy
CPT/HCPCS: 36415; 76937; 80048; 85025; 85610; 85730; 93005; 93458; 99152; 99153; C1751; C1769; C1894; J0360; J1644; J2250; J3010; J3490; J7030; Q9967; A4620; A6258; A6402

== ENCOUNTER 2024-04-16 13:00 | Emergency (ER) | payer MEDICARE ==
[~2024-04-16] VITALS: Ht 152.4 cm; Wt 97.7 kg
[~2024-04-16 13:00] MED LIST changes: +APIX5TAB3 PO; +BETA1TAB18 PO; -BISA10SU60 RC; +CALC300T4 PO; +CHOL200012 PO; -CIPR-202 PO; -DIGO125T PO; -DILT60TA9 PO; -DIPH25CA83 PO; -HYDR-3964 PO; -LACT1CAP86 PO; -MAGN400O6 PO; -METR-159 PO; -NYST30CR2 TP; -OXYB5TAB16 PO; +OXYB5TAB21 PO; -PROP10TA10 PO; -RIVA20TA PO; -SENN-263 PO
[2024-04-16] MEDS ORDERED: HYDR-3965 PO (16:30)
[2024-04-16] MEDS: HYDROcodone/acetaminophen 5mg/325mg tablet PO ONE (16:31)
[2024-04-16 16:44] VITALS: BP 160/82; PULSE 51; RESP 17; TEMP 98; O2SAT 96
== END 2024-04-16 16:30 | disposition home or self-care (01) ==
LOC: ER 13:00
DX: S93.401A Sprain of unspecified ligament of right ankle, initial encounter (principal); I48.91 Unspecified atrial fibrillation; I10 Essential (primary) hypertension; Z88.0 Allergy status to penicillin; Z88.2 Allergy status to sulfonamides; Z79.899 Other long term (current) drug therapy; Z90.49 Acquired absence of other specified parts of digestive tract; Z90.710 Acquired absence of both cervix and uterus; X50.1XXA Overexertion from prolonged static or awkward postures, initial encounter; Y93.89 Activity, other specified; Y92.89 Other specified places as the place of occurrence of the external cause; Y99.8 Other external cause status
CPT/HCPCS: 73590; 73630; 99284; A6449